=== PATIENT | female | born 1960 | race Hispanic/Latino ===

== ENCOUNTER → 2018-04-06 | Outpatient (CLI) | payer MEDICARE ==
[~2018-04-06] VITALS: Ht 149.9 cm; Wt 116.1 kg
[~2018-04-06] MED LIST: ASPI-555 PO; CLOP75TA32 PO; INS7030 SQ; LEVO137T2 PO; LISI40TA4 PO; MELO-106 PO; METF500T6 PO; METO25TA6 PO; PRED20TA3 PO; REGADENOSON 0.4 MG/5 ML PF SYG IVP SCH
== END | disposition home or self-care (01) ==
LOC: SHCH 09:29
PROVIDERS: ATTEND Internal Medicine Cardiovascular Disease
DX: I20.9 Angina pectoris, unspecified (principal)
CPT/HCPCS: 78452; 93017; 96374; A9500 ×2; J2785

== ENCOUNTER → 2018-08-19 | Outpatient (CLI) | payer MEDICARE ==
[~2018-08-19] MED LIST changes: +ASPI-1181 PO; -ASPI-555 PO; +CIME300T PO; +DIPH25 PO; +ESTR1TAB17 PO; -MELO-106 PO; +METF-444 PO; -METF500T6 PO; +NITR0.4T50 SL; -REGADENOSON 0.4 MG/5 ML PF SYG IVP SCH
== END | disposition home or self-care (01) ==
LOC: OIH 12:36
PROVIDERS: ATTEND Internal Medicine
DX: M19.042 Primary osteoarthritis, left hand (principal); M19.041 Primary osteoarthritis, right hand; M47.892 Other spondylosis, cervical region; M19.072 Primary osteoarthritis, left ankle and foot; M19.071 Primary osteoarthritis, right ankle and foot
CPT/HCPCS: 72040; 73130; 73630

== ENCOUNTER 2019-01-09 16:42 | Emergency (ER) | payer MEDICARE ==
[2019-01-09] MEDS ORDERED: SODIUM CHLORIDE 0.9% 1000ML 1,000 ML IV ONE (17:29)
[2019-01-09] MEDS ORDERED: ONDANSETRON HCL 4 MG/2 ML VIAL ONE (17:29)
[2019-01-09] MEDS ORDERED: ACETAMINOPHEN EXTRA STRENGTH 500 MG TABLET ONE (17:29)
[2019-01-09 17:36] LABS: BASOPHILS % (AUTO) 1.3 % (0.0-5.0); EOSINOPHILS % (AUTO) 1.5 % (0.0-8.0); HEMATOCRIT 38.8 % (36-48); LYMPHOCYTES % (AUTO) 30.3 % (21.0-51.0); MEAN CORPUSCULAR HEMOGLOBIN 29.2 pg (27.0-33.0); MEAN CORPUSCULAR HGB CONC 33.8 g/dL (32.0-36.0); MEAN CORPUSCULAR VOLUME 86.3 fL (79-99); MONOCYTES % (AUTO) 8.1 % (3.0-13.0); NEUTROPHILS % (AUTO) 58.8 % (40.0-77.0); PLATELET COUNT (AUTO) 313 K/uL (130-400); RED CELL DISTRIBUTION WIDTH 13.5 % (11.0-15.5)
[2019-01-09 17:45] LABS: APPEARANCE,URINE Clear (CLEAR); BILIRUBIN,URINE Negative (NEGATIVE); COLOR,URINE Yellow (YELLOW); GLUCOSE, URINE (UA) >=1000 mg/dL (NEGATIVE); KETONES,URINE Trace mg/dL (NEGATIVE); LEUKOCYTE ESTERASE ,URINE Negative (NEGATIVE); NITRATE,URINE Negative (NEGATIVE); OCCULT BLOOD,URINE Negative (NEGATIVE); PROTEIN,URINE Negative (NEGATIVE)
[2019-01-09 17:53] LABS: BACTERIA,URINE Few /HPF (None Seen); RBC,URINE 0-1 /HPF (0-1); WBC,URINE 0-1 /HPF (0-1)
[2019-01-09 18:21] LABS: CREATININE 0.9 mg/dL (0.5-1.5)
[2019-01-09 18:38] LABS: BILIRUBIN,TOTAL 0.3 mg/dL (0.2-1.0); POTASSIUM 4.3 mmol/L (3.5-5.1); TOTAL PROTEIN, SERUM 7.9 g/dL (6.0-8.3)
== END 2019-01-09 19:37 | disposition home or self-care (01) ==
LOC: EDH 16:42
DX: R10.30 Lower abdominal pain, unspecified (principal); R11.0 Nausea; E11.9 Type 2 diabetes mellitus without complications; E78.5 Hyperlipidemia, unspecified; I10 Essential (primary) hypertension; Z90.710 Acquired absence of both cervix and uterus; Z90.49 Acquired absence of other specified parts of digestive tract; Z79.4 Long term (current) use of insulin; Z88.6 Allergy status to analgesic agent; Z88.5 Allergy status to narcotic agent; Z91.041 Radiographic dye allergy status
CPT/HCPCS: 36415; 74176; 80053; 81001; 85025; 96374; 99284; J2405; J7030

== ENCOUNTER → 2019-09-15 | Outpatient (CLI) | payer OTHER, MEDICARE | END | disposition home or self-care (01) | LOC: OIH 10:38 | PROVIDERS: ATTEND Internal Medicine | DX: M47.812 Spondylosis without myelopathy or radiculopathy, cervical region (principal); M06.4 Inflammatory polyarthropathy | CPT/HCPCS: 72040 ==

== ENCOUNTER 2020-05-24 23:50 | Inpatient (IN) | payer OTHER, MEDICARE ==
[~2020-05-24] VITALS: Ht 149.9 cm; Wt 112.9 kg
[~2020-05-24 23:50] MED LIST changes: -ASPI-1181 PO; +ASPI-1443 PO
[2020-05-25 00:45] LABS: BASOPHILS % (AUTO) 0.7 % (0.0-5.0); EOSINOPHILS % (AUTO) 1.4 % (0.0-8.0); HEMATOCRIT 34.4 % (36-48); LYMPHOCYTES % (AUTO) 35.7 % (21.0-51.0); MEAN CORPUSCULAR HEMOGLOBIN 28.3 pg (27.0-33.0); MEAN CORPUSCULAR HGB CONC 32.8 g/dL (32.0-36.0); MONOCYTES % (AUTO) 9.3 % (3.0-13.0); NEUTROPHILS % (AUTO) 52.8 % (40.0-77.0); PLATELET COUNT (AUTO) 295 K/uL (130-400); RED CELL DISTRIBUTION WIDTH 12.7 % (11.0-15.5); WHITE BLOOD COUNT (AUTO) 7.1 K/uL (4.8-10.8)
[2020-05-25 00:45] LABS: APPEARANCE,URINE Clear (CLEAR); BILIRUBIN,URINE Negative (NEGATIVE); COLOR,URINE Yellow (YELLOW); GLUCOSE, URINE (UA) Negative (NEGATIVE); KETONES,URINE Negative (NEGATIVE); LEUKOCYTE ESTERASE ,URINE Small (NEGATIVE); NITRATE,URINE Negative (NEGATIVE); OCCULT BLOOD,URINE Negative (NEGATIVE); PROTEIN,URINE Negative (NEGATIVE)
[2020-05-25 00:47] LABS: CREATININE 0.6 mg/dL (0.5-1.5); POTASSIUM 3.9 mmol/L (3.5-5.1)
[2020-05-25] MEDS ORDERED: ONDANSETRON HCL 4 MG/2 ML VIAL ONE (00:48)
[2020-05-25] MEDS ORDERED: KETOROLAC TROMETHAMINE 30MG/ML ONE (00:49)
[2020-05-25] MEDS ORDERED: SODIUM CHLORIDE 0.9% 1000ML 1,000 ML IV ONE ×2 (00:49→02:18)
[2020-05-25 00:51] LABS: ALBUMIN 3.5 g/dL (3.5-5.0); BILIRUBIN,TOTAL 0.3 mg/dL (0.2-1.0); TOTAL PROTEIN, SERUM 7.3 g/dL (6.0-8.3)
[2020-05-25 01:26] LABS: BACTERIA,URINE Few /HPF (None Seen); CALCIUM OXALATE CRYSTALS,UR Rare /LPF (None Seen); RBC,URINE 0-1 /HPF (0-1); SQUAMOUS EPITHELIAL CELL,UR 0-2 /HPF (0-2)
[2020-05-25] MEDS ORDERED: ZOSYN 3.375GM+NS 50ML 50 ML IV ONE (02:52)
[2020-05-25 09:19] VITALS: BP 158/76
[2020-05-25] MEDS ORDERED: PANTOPRAZOLE 40 MG/VIAL IVP SCH (10:32)
[2020-05-25] MEDS ORDERED: MORPHINE SULFATE 2 MG/ML 1ML SYG IVP PRN (10:45)
[2020-05-25] MEDS ORDERED: ONDANSETRON HCL 4 MG/2 ML VIAL IVP PRN (10:45)
[2020-05-25] MEDS ORDERED: LEVO125T11 PO (11:02)
[2020-05-25] MEDS ORDERED: METF-444 PO (11:02)
[2020-05-25] MEDS ORDERED: LINA145C PO (11:09)
[2020-05-25] MEDS: SODIUM CHLORIDE 0.9% 1000ML 1,000 ML IV SCH ×2 (11:30→20:40)
[2020-05-25 11:40] VITALS: BP 121/68
--- NOTE | 2020-05-25 15:57 | NUR ---
MARIA D NOTE/FLOR UNABLE TO MEET WITH PATIENT IN ROOM. SPOKE TO DAUGHTERANAT ON PHONE. PER DAUGHTER, PATIENT IS SEMI INDEPENDENT, LIVES ALONE, HAS USE OF PROVIDER FROM [facility] FOR 30HR PER WEEK, HAS USE OF CPAP AT HOME, USES [facility] ON [address] AND FEELS SAFE FOR PATIENT TO RETURN HOME. Addendum: 05/25/20 at 1600 by JESSICA RIOS RN CM Amended: Links added.
[2020-05-25 16:42] VITALS: BP 173/74
[2020-05-25 20:00] VITALS: BP 140/65
[2020-05-25] MEDS ORDERED: DEXTROSE 50%-WATER 50 ML DISP.SYRIN IV PRN (20:30)
[2020-05-25] MEDS ORDERED: GLUCAGON 1MG KIT 1 MG ML IM PRN (20:30)
[2020-05-25] MEDS ORDERED: INSULIN HUMULIN R 100 UNIT/ML 3ML SQ SCH (21:00)
[2020-05-25] MEDS: FAMOTIDINE/PF 20 MG/2 ML VIAL IV SCH (21:02)
[2020-05-25] MEDS: KETOROLAC TROMETHAMINE 15MG/ML IV PRN (23:07)
[2020-05-26] VITALS: BP 124/61
[2020-05-26 04:00] VITALS: BP 117/60
[2020-05-26 04:22] LABS: HEMATOCRIT 31.1 % (36-48); MEAN CORPUSCULAR HEMOGLOBIN 28.5 pg (27.0-33.0); MEAN CORPUSCULAR HGB CONC 33.1 g/dL (32.0-36.0); MEAN CORPUSCULAR VOLUME 86.1 fL (79-99); RED BLOOD CELL COUNT(AUTO) 3.61 MIL/uL (4.00-5.50); RED CELL DISTRIBUTION WIDTH 12.6 % (11.0-15.5); WHITE BLOOD COUNT (AUTO) 6.1 K/uL (4.8-10.8)
[2020-05-26 04:43] LABS: ALBUMIN 3.1 g/dL (3.5-5.0); BILIRUBIN,TOTAL 0.6 mg/dL (0.2-1.0); CREATININE 0.7 mg/dL (0.5-1.5); POTASSIUM 3.8 mmol/L (3.5-5.1); TOTAL PROTEIN, SERUM 6.3 g/dL (6.0-8.3)
[2020-05-26] MEDS: SODIUM CHLORIDE 0.9% 1000ML 1,000 ML IV SCH ×2 (04:49→09:16)
[2020-05-26] MEDS: INSULIN HUMULIN R 100 UNIT/ML 3ML SQ SCH ×5 (05:14→21:00)
[2020-05-26 05:24] LABS: CHOLESTEROL 180 mg/dL (<200); HDL CHOLESTEROL 51 mg/dL (35-85); LDL DIRECT 115 mg/dL (0-99); TRIGLYCERIDES 79 mg/dL (30-200)
[2020-05-26 07:58] VITALS: BP 128/70
[2020-05-26] MEDS: FAMOTIDINE/PF 20 MG/2 ML VIAL IV SCH ×2 (09:09→20:29)
[2020-05-26 11:29] VITALS: BP 135/70
[2020-05-26] MEDS ORDERED: GLUCAGON 1MG KIT 1 MG ML IM PRN (16:00)
[2020-05-26] MEDS ORDERED: DEXTROSE 50%-WATER 50 ML DISP.SYRIN IV PRN (16:00)
[2020-05-26 16:26] VITALS: BP 144/60
[2020-05-26] MEDS ORDERED: METRONIDAZOLE 500MG/100ML BAG 100 ML IV SCH (20:00)
[2020-05-26] MEDS: KETOROLAC TROMETHAMINE 15MG/ML IV PRN (20:09)
[2020-05-26] MEDS: METOPROLOL TARTRATE 25 MG TAB PO SCH (20:29)
[2020-05-26 20:45] VITALS: BP 149/64
[2020-05-26] MEDS ORDERED: LEVOFLOXACIN 500 MG/D5W 100 ML 100 ML IV SCH (21:00)
[2020-05-27 00:17] VITALS: BP 178/61
[2020-05-27 00:30] VITALS: BP 159/68
[2020-05-27] MEDS: SODIUM CHLORIDE 0.9% 1000ML 1,000 ML IV SCH (02:39)
[2020-05-27 03:58] VITALS: BP 162/73
[2020-05-27] MEDS ORDERED: LEVOTHYROXINE 125 MCG TABLET PO SCH (06:00)
[2020-05-27] MEDS: INSULIN HUMULIN R 100 UNIT/ML 3ML SQ SCH ×2 (06:31→13:27)
[2020-05-27 08:23] VITALS: BP 180/75
[2020-05-27] MEDS ORDERED: ASPIRIN 81 MG EC TAB PO SCH (09:00)
[2020-05-27] MEDS ORDERED: CLOPIDOGREL BISULFATE 75 MG TAB PO SCH (09:00)
[2020-05-27] MEDS ORDERED: LISINOPRIL 40 MG TABLET PO SCH (09:00)
[2020-05-27] MEDS: FAMOTIDINE/PF 20 MG/2 ML VIAL IV SCH (09:00)
[2020-05-27] MEDS ORDERED: (Linaclotide (Linzess) 145 MCG) PO PRN (09:00)
[2020-05-27] MEDS ORDERED: METFORMIN HCL 500 MG TABLET PO SCH (09:00)
[2020-05-27] MEDS: METOPROLOL TARTRATE 25 MG TAB PO SCH (10:55)
[2020-05-27 11:43] VITALS: BP 194/77
== END 2020-05-27 16:33 | disposition home or self-care (01) | DRG 392 ==
LOC: EDH 23:50 → OBSVTOIN 05-25 06:20 → EDHIP 05-25 06:20 → 3CH 05-25 09:18
PROVIDERS: ADMIT Internal Medicine; ATTEND Internal Medicine
DX: K57.92 Diverticulitis of intestine, part unspecified, without perforation or abscess without bleeding (principal); Z68.43 Body mass index [BMI] 50.0-59.9, adult; E11.9 Type 2 diabetes mellitus without complications; E78.5 Hyperlipidemia, unspecified; E03.9 Hypothyroidism, unspecified; I25.10 Atherosclerotic heart disease of native coronary artery without angina pectoris; I10 Essential (primary) hypertension; E66.01 Morbid (severe) obesity due to excess calories; K59.09 Other constipation; Z20.828 Contact with and (suspected) exposure to other viral communicable diseases; Z90.49 Acquired absence of other specified parts of digestive tract; Z91.041 Radiographic dye allergy status; Z88.5 Allergy status to narcotic agent; Z91.013 Allergy to seafood; Z87.19 Personal history of other diseases of the digestive system
CPT/HCPCS: 36415; 74176; 76700; 80053; 80061; 81001; 82150; 82550; 82948; 83690; 84478; 84484; 85025; 85027; 87426; 93005; C9113; G0378; J1815; J1885; J1956; J2405; J2543; J3490; J7030

== ENCOUNTER → 2020-05-31 | Outpatient (CLI) | payer OTHER, MEDICARE ==
[~2020-05-31] MED LIST changes: -CIME300T PO; -DIPH25 PO; -ESTR1TAB17 PO; +LEVO125T11 PO; -LEVO137T2 PO; +LINA145C PO; -NITR0.4T50 SL; -PRED20TA3 PO
== END | disposition home or self-care (01) ==
LOC: OIH 13:56
PROVIDERS: ATTEND Internal Medicine
DX: I11.9 Hypertensive heart disease without heart failure (principal)
CPT/HCPCS: 71046

== ENCOUNTER → 2020-11-28 | Outpatient (CLI) | payer OTHER, MEDICARE ==
[~2020-11-28] MED LIST changes: -LISI40TA4 PO; +LISI40TA9 PO
== END | disposition home or self-care (01) ==
LOC: SHCH 15:39
PROVIDERS: ATTEND Internal Medicine Cardiovascular Disease
DX: I87.2 Venous insufficiency (chronic) (peripheral) (principal)
CPT/HCPCS: 93970

== ENCOUNTER → 2020-12-27 | Outpatient (CLI) | payer OTHER, MEDICARE | END | disposition home or self-care (01) | LOC: OIH 10:09 | PROVIDERS: ATTEND Internal Medicine | DX: M54.5 Low back pain (principal); M54.6 Pain in thoracic spine | CPT/HCPCS: 72070; 72100 ==

== ENCOUNTER → 2021-02-07 | Outpatient (CLI) | payer OTHER, MEDICARE | END | disposition home or self-care (01) | LOC: SHCH 15:40 | PROVIDERS: ATTEND Internal Medicine Cardiovascular Disease | DX: I73.9 Peripheral vascular disease, unspecified (principal) | CPT/HCPCS: 93925 ==

== ENCOUNTER → 2021-03-18 | Outpatient (CLI) | payer OTHER, MEDICARE | END | disposition home or self-care (01) | LOC: SHCH 08:53 | PROVIDERS: ATTEND Internal Medicine Cardiovascular Disease | DX: Z09 Encounter for follow-up examination after completed treatment for conditions other than malignant neoplasm (principal); I87.2 Venous insufficiency (chronic) (peripheral); I82.4Z1 Acute embolism and thrombosis of unspecified deep veins of right distal lower extremity | CPT/HCPCS: 93971 ==

== ENCOUNTER → 2021-03-26 | Outpatient (CLI) | payer OTHER, MEDICARE | END | disposition home or self-care (01) | LOC: SHCH 14:19 | PROVIDERS: ATTEND Internal Medicine Cardiovascular Disease | DX: Z09 Encounter for follow-up examination after completed treatment for conditions other than malignant neoplasm (principal); I87.2 Venous insufficiency (chronic) (peripheral) | CPT/HCPCS: 93971 ==

== ENCOUNTER 2022-01-06 13:44 | Emergency (ER) | payer OTHER, MEDICARE ==
[~2022-01-06] VITALS: Ht 149.9 cm; Wt 81.6 kg
[2022-01-06] MEDS ORDERED: ONDANSETRON 4MG INJ IVP SCH (14:00)
[2022-01-06] MEDS ORDERED: 0.9%NACL 1000ML 1,000 ML IV SCH (14:00)
[2022-01-06] MEDS ORDERED: KETOROLAC 30MG VIAL (30MG/ML) IVP SCH (14:00)
[2022-01-06 15:12] LABS: BASOPHILS % (AUTO) 0.6 % (0.0-5.0); EOSINOPHILS % (AUTO) 0.9 % (0.0-8.0); HEMATOCRIT 33.8 % (36-48); LYMPHOCYTES % (AUTO) 28.6 % (21.0-51.0); MEAN CORPUSCULAR HEMOGLOBIN 29.2 pg (27.0-33.0); MEAN CORPUSCULAR HGB CONC 32.8 g/dL (32.0-36.0); MEAN CORPUSCULAR VOLUME 88.9 fL (79-99); MONOCYTES % (AUTO) 6.6 % (3.0-13.0); NEUTROPHILS % (AUTO) 62.9 % (40.0-77.0); PLATELET COUNT (AUTO) 237 K/uL (130-400); RED CELL DISTRIBUTION WIDTH 12.5 % (11.0-15.5); WHITE BLOOD COUNT (AUTO) 5.3 K/uL (4.8-10.8)
[2022-01-06 15:29] LABS: ALBUMIN 3.7 g/dL (3.5-5.0); BILIRUBIN,TOTAL 0.8 mg/dL (0.2-1.0); CREATININE 0.7 mg/dL (0.5-1.5); POTASSIUM 4.4 mmol/L (3.5-5.1)
[2022-01-06] MEDS ORDERED: LACT10PA5 PO (16:07)
[2022-01-06] MEDS ORDERED: DICY20TA2 PO (16:17)
[2022-01-06] MEDS ORDERED: LACTULOSE 20 GM/30 ML UDCUP PO ONE (16:30)
[2022-01-06] MEDS ORDERED: MAGNESIUM CITRATE 296 ML SOLUTION PO ONE (16:30)
[2022-01-06 16:32] VITALS: BP 121/56
== END 2022-01-06 16:34 | disposition home or self-care (01) ==
LOC: EDH 13:44
DX: K57.10 Diverticulosis of small intestine without perforation or abscess without bleeding (principal); E03.9 Hypothyroidism, unspecified; E11.9 Type 2 diabetes mellitus without complications; I10 Essential (primary) hypertension; I25.10 Atherosclerotic heart disease of native coronary artery without angina pectoris; E66.9 Obesity, unspecified; Z68.36 Body mass index [BMI] 36.0-36.9, adult; Z88.5 Allergy status to narcotic agent; Z88.8 Allergy status to other drugs, medicaments and biological substances; Z79.4 Long term (current) use of insulin; Z79.82 Long term (current) use of aspirin; Z79.899 Other long term (current) drug therapy; Z90.49 Acquired absence of other specified parts of digestive tract; Z90.710 Acquired absence of both cervix and uterus
CPT/HCPCS: 36415; 71045; 74176; 80053; 83690; 84484; 85025; 96361 ×2; 96374; 96375; 99285; J1885; J2405; J7030

== ENCOUNTER 2022-01-29 00:56 | Emergency (ER) | payer OTHER, MEDICARE ==
[~2022-01-29] VITALS: Ht 149.9 cm; Wt 82.1 kg
[~2022-01-29 00:56] MED LIST changes: +DICY20TA2 PO
[2022-01-29 01:25] VITALS: BP 110/51
[2022-01-29 01:51] LABS: BASOPHILS % (AUTO) 0.6 % (0.0-5.0); EOSINOPHILS % (AUTO) 0.8 % (0.0-8.0); HEMATOCRIT 40.2 % (36-48); LYMPHOCYTES % (AUTO) 8.4 % (21.0-51.0); MEAN CORPUSCULAR HEMOGLOBIN 29.5 pg (27.0-33.0); MEAN CORPUSCULAR HGB CONC 32.6 g/dL (32.0-36.0); MEAN CORPUSCULAR VOLUME 90.5 fL (79-99); MONOCYTES % (AUTO) 5.1 % (3.0-13.0); NEUTROPHILS % (AUTO) 84.6 % (40.0-77.0); PLATELET COUNT (AUTO) 286 K/uL (130-400); RED BLOOD CELL COUNT(AUTO) 4.44 MIL/uL (4.00-5.50); RED CELL DISTRIBUTION WIDTH 12.1 % (11.0-15.5); WHITE BLOOD COUNT (AUTO) 9.7 K/uL (4.8-10.8)
[2022-01-29 01:57] LABS: CREATININE 1.2 mg/dL (0.5-1.5); POTASSIUM 4.3 mmol/L (3.5-5.1)
[2022-01-29] MEDS ORDERED: METOCLOPRAMIDE 10 MG/2 ML VIAL IVP ONE (02:00)
[2022-01-29] MEDS ORDERED: ORPHENADRINE CITRATE 30 MG/ML ML IVP ONE (02:00)
[2022-01-29] MEDS ORDERED: ONDANSETRON 4MG INJ IVP ONE (02:00)
[2022-01-29] MEDS ORDERED: 0.9%NACL 1000ML 1,000 ML IV ONE (02:00)
[2022-01-29] MEDS ORDERED: FAMOTIDINE 20MG VIAL IV ONE (02:00)
[2022-01-29] MEDS ORDERED: KETOROLAC 30MG VIAL (30MG/ML) IVP ONE (02:00)
[2022-01-29 02:01] LABS: ALBUMIN 4.5 g/dL (3.5-5.0); BILIRUBIN,TOTAL 0.8 mg/dL (0.2-1.0); TOTAL PROTEIN, SERUM 7.8 g/dL (6.0-8.3)
[2022-01-29 04:12] LABS: APPEARANCE,URINE Cloudy (CLEAR); BILIRUBIN,URINE Negative (NEGATIVE); COLOR,URINE Yellow (YELLOW); GLUCOSE, URINE (UA) Negative (NEGATIVE); KETONES,URINE 15 mg/dL (NEGATIVE); LEUKOCYTE ESTERASE ,URINE Small (NEGATIVE); NITRATE,URINE Negative (NEGATIVE); OCCULT BLOOD,URINE Negative (NEGATIVE); PH,URINE 5.5 (5.0-8.0); PROTEIN,URINE POS 1+ mg/dL (NEGATIVE)
[2022-01-29 04:27] LABS: BACTERIA,URINE None Seen /HPF (None Seen); MUCUS,URINE Rare LPF (None Seen); RBC,URINE None Seen /HPF (0-1); SQUAMOUS EPITHELIAL CELL,UR Rare /HPF (0-2); WBC,URINE 0-1 /HPF (0-1)
[2022-01-29] MEDS ORDERED: ORPH-43 PO (04:36)
[2022-01-29] MEDS ORDERED: METO-296 PO (04:36)
[2022-01-29] MEDS ORDERED: MELO7.5T12 PO (04:36)
[2022-01-29] MEDS ORDERED: ONDA4TAB10 PO (04:36)
== END 2022-01-29 04:54 | disposition home or self-care (01) ==
LOC: EDH 00:56
DX: E86.9 Volume depletion, unspecified (principal); M62.838 Other muscle spasm; R51.9 Headache, unspecified; R19.7 Diarrhea, unspecified; R11.2 Nausea with vomiting, unspecified; E11.9 Type 2 diabetes mellitus without complications; I10 Essential (primary) hypertension; E03.9 Hypothyroidism, unspecified; M06.9 Rheumatoid arthritis, unspecified; Z88.5 Allergy status to narcotic agent; Z88.8 Allergy status to other drugs, medicaments and biological substances; Z95.5 Presence of coronary angioplasty implant and graft; Z79.1 Long term (current) use of non-steroidal anti-inflammatories (NSAID); Z79.4 Long term (current) use of insulin; Z79.82 Long term (current) use of aspirin; Z79.899 Other long term (current) drug therapy
CPT/HCPCS: 36415; 80053; 81001; 83690; 85025; 93005; 96361; 96374; 96375; 99284; J1885; J2360; J2405; J2765; J3490; J7030

== ENCOUNTER 2023-02-27 21:21 | Emergency (ER) | payer OTHER, MEDICARE ==
[~2023-02-27] VITALS: Ht 149.9 cm; Wt 85.3 kg
[~2023-02-27 21:21] MED LIST changes: +MELO7.5T12 PO; +METO-296 PO; +ONDA4TAB10 PO; +ORPH100T4 PO
[2023-02-27 21:43] LABS: BASOPHILS % (AUTO) 1.1 % (0.0-5.0); EOSINOPHILS % (AUTO) 2.2 % (0.0-8.0); HEMATOCRIT 34.6 % (36-48); LYMPHOCYTES % (AUTO) 42.9 % (21.0-51.0); MEAN CORPUSCULAR HEMOGLOBIN 28.4 pg (27.0-33.0); MEAN CORPUSCULAR HGB CONC 32.9 g/dL (32.0-36.0); MEAN CORPUSCULAR VOLUME 86.3 fL (79-99); MONOCYTES % (AUTO) 8.2 % (3.0-13.0); NEUTROPHILS % (AUTO) 45.4 % (40.0-77.0); PLATELET COUNT (AUTO) 292 K/uL (130-400); RED BLOOD CELL COUNT(AUTO) 4.01 MIL/uL (4.00-5.50); RED CELL DISTRIBUTION WIDTH 12.6 % (11.0-15.5); WHITE BLOOD COUNT (AUTO) 6.4 K/uL (4.8-10.8)
[2023-02-27 21:55] LABS: CREATININE 0.8 mg/dL (0.5-1.5); POTASSIUM 3.8 mmol/L (3.5-5.1)
[2023-02-27] MEDS ORDERED: KETOROLAC 15MG/ML VIAL (15MG/ML) IV ONE (22:00)
[2023-02-27] MEDS ORDERED: HYDROCODONE/ACETAMINOPHEN 10/325 MG TAB PO ONE (22:00)
[2023-02-27 22:09] LABS: TOTAL PROTEIN, SERUM 7.3 g/dL (6.0-8.3)
[2023-02-27 23:36] VITALS: BP 126/66
[2023-02-27] MEDS ORDERED: KETO10TA2 PO (23:42)
== END 2023-02-27 23:50 | disposition home or self-care (01) ==
LOC: EDH 21:21
DX: G89.29 Other chronic pain (principal); M54.50 Low back pain, unspecified; Z91.013 Allergy to seafood; I10 Essential (primary) hypertension; E11.9 Type 2 diabetes mellitus without complications; E03.9 Hypothyroidism, unspecified; M19.90 Unspecified osteoarthritis, unspecified site; Z88.8 Allergy status to other drugs, medicaments and biological substances; Z79.899 Other long term (current) drug therapy; Z90.89 Acquired absence of other organs; Z90.710 Acquired absence of both cervix and uterus; Z90.49 Acquired absence of other specified parts of digestive tract
CPT/HCPCS: 99285; 96374; 72131; 80053; 85025; 36415; J1885

== ENCOUNTER → 2023-10-20 | Outpatient (CLI) | payer OTHER, MEDICARE ==
[~2023-10-20] MED LIST changes: +KETO10TA2 PO
== END | disposition home or self-care (01) ==
LOC: RAH 12:39
PROVIDERS: ATTEND Internal Medicine
DX: M48.061 Spinal stenosis, lumbar region without neurogenic claudication (principal); M51.16 Intervertebral disc disorders with radiculopathy, lumbar region; M47.26 Other spondylosis with radiculopathy, lumbar region
CPT/HCPCS: 72148

== ENCOUNTER → 2024-10-27 | Outpatient (CLI) | payer OTHER, MEDICARE ==
[~2024-10-27] MED LIST changes: +ONDA-243 PO; -ONDA4TAB10 PO
[2024-10-27] MEDS: REGADENOSON 0.4 MG/5 ML PF SYG IVP ONE (11:37)
--- NOTE | 2024-10-27 18:29 | HMCSR ---
APPROVED REPORT Height: 4 ft 9in Weight: 156 lbs TEST INDICATIONS Chest Pain The imaging protocol used to acquire images was Rest Tc-99m/stress Tc-99m 1 day Consent: The procedure was explained and understood by the patient. Informerd consent was witnessed Yaw Joyce RN First, low dose rest was performed then high dose stress. RESTING DATA: The resting ekg shows: NSR Rest SPECT myocardial perfusion imaging was performed in supine position 67 minutes following the int ravenous injection of 10.2 mCi of Tc-99 Sestamibi. Time of rest injection: 08:50: Date: 10/27/2024 Time of rest imagin:57: Date: 10/27/2024 PHARMACOLOGIC STRESS: Pharmacologic stress test was performed by injecting regadenoson 0.4 mg IV push followed by the intra venous injection of 31.3 mCi of Tc-99 Sestamibi. Time of stress injection: 10:30: Date: 10/27/2024 Time of stress imagin:11: Date: 10/27/2024 Heart Rate at time of stress injection: 60 bpm. Gated Stress SPECT was performed 101 minutes after stress injection. The images were gated to evaluate regional wall motion and calculate left ventricular ejection fracti on. STRESS DETAILS Reason for Termination: Infusion complete Stress Symptoms: Dyspnea, Chest tightness Max HR Achieved: 82 bpm % of APMHR Achieved: 52 Max Blood Pressure: 124/74 mmHg Stress ECG: NSR Study quality was good. Lung uptake was Normal. Artifact: No artifact IMPRESSION Normal pharmacologic nuclear stress test. Conclusion Normal perfusion. LVEF >70%.
== END | disposition home or self-care (01) ==
LOC: SHCH 08:27
PROVIDERS: ATTEND Internal Medicine Cardiovascular Disease
DX: R07.89 Other chest pain (principal); R06.09 Other forms of dyspnea
CPT/HCPCS: 78452; 93017; J2785; A9500 ×2